=== PATIENT | male | born 1970 | race Caucasian/White ===

== ENCOUNTER 2017-06-19 06:11 | Emergency (ER) | payer SELFPAY ==
[2017-06-19] MEDS ORDERED: Ibuprofen 800 MG TAB ONE (06:42)
== END 2017-06-19 07:45 | disposition home or self-care (01) ==
LOC: MADERS 06:11
DX: H66.92 Otitis media, unspecified, left ear (principal); Z87.891 Personal history of nicotine dependence
CPT/HCPCS: 99282

== ENCOUNTER 2017-07-01 16:07 | Emergency (ER) | payer SELFPAY ==
[2017-07-01] MEDS ORDERED: Lidocaine 1% 20 ML MDV ONE (16:28)
== END 2017-07-01 16:40 | disposition home or self-care (01) ==
LOC: MADERS 16:07
DX: T16.2XXA Foreign body in left ear, initial encounter (principal); Z87.891 Personal history of nicotine dependence
CPT/HCPCS: 69209; J2001

== ENCOUNTER 2017-09-19 13:42 | Emergency (ER) | payer SELFPAY ==
[2017-09-19] MEDS ORDERED: Metoclopramide HCl 10 MG TAB ONE (14:31)
[2017-09-19] MEDS ORDERED: Acetaminophen 500 MG TAB ONE (14:32)
[2017-09-19] MEDS ORDERED: cefTRIAXone\\ROCEPHIN 1 GM VIAL ONE (14:32)
[2017-09-19] MEDS ORDERED: Lidocaine 1% 20 ML MDV ONE (14:32)
[2017-09-19] MEDS ORDERED: diphenhydrAMINE 25 MG CAP ONE (14:46)
== END 2017-09-19 14:50 | disposition home or self-care (01) ==
LOC: MADERS 13:42
DX: H60.92 Unspecified otitis externa, left ear (principal); K02.9 Dental caries, unspecified; Z87.891 Personal history of nicotine dependence
CPT/HCPCS: 96372; J0696; J2001

== ENCOUNTER 2017-10-21 07:42 | Emergency (ER) | payer SELFPAY ==
[2017-10-21 09:01] LABS: #Basophils 0.1 thou/uL (0.0-0.2); #Eosinphils 0.2 thou/uL (0.0-0.7); #Lymphocytes 1.6 thou/uL (1.20-3.40); #Monocytes 0.8 thou/uL (0.11-0.59); #Neutrophils 3.2 thou/uL (1.40-6.50); %Basophils 1.7 % (0.0-1.0); %Eosinophils 3.7 % (0.0-10.0); %Lymphocytes 26.5 % (21.0-51.0); %Monocytes 13.7 % (0.0-10.0); %Neutrophils 54.4 % (42.0-75.0); Hemoglobin 14.2 g/dL (14.0-18.0); Mean Corpuscular HGB CONC 31.8 g/dL (32.0-36.0); Mean Corpuscular Hemoglobin 30.1 pg (27.0-31.0); Mean Corpuscular Volume 94.8 fl (80.0-94.0); Mean Platelet Volume 9.9 fL (7.4-10.4); Platelet Count 203 thou/uL (130-400); RBC Distribution Width 12.4 % (11.5-14.5); Red Blood Cell (RBC) Count 4.73 mill/uL (4.70-6.10); White Blood Cell (WBC) Count 5.9 thou/uL (4.8-10.8)
[2017-10-21 09:30] LABS: ALT (SGPT) 22 U/L (8-55); AST (SGOT) 17 U/L (5-34); Albumin 3.7 g/dL (3.5-5.0); Alkaline Phosphatase 88 U/L (40-150); Anion Gap 16 mmol/L (10-20); BUN (Urea Nitrogen) 17 mg/dL (8.9-20.6); Bilirubin, Total Less than 0.3 mg/dL (0.2-1.2); Calc. Creatinine Clearance 0 mL/min (70-130); Calcium 9.1 mg/dL (7.8-10.44); Carbon Dioxide 20 mmol/L (22-29); Chloride 108 mmol/L (98-107); Estimated GFR-MDRD 72; Globulin 2.8 g/dL (2.4-3.5); Glucose 86 mg/dL (70-105); Lipase 23 U/L (8-78); Potassium 4.9 mmol/L (3.5-5.1); Protein, Total 6.5 g/dL (6.0-8.3); Sodium 139 mmol/L (136-145)
== END 2017-10-21 09:45 | disposition home or self-care (01) ==
LOC: MADERS 07:42
DX: H65.92 Unspecified nonsuppurative otitis media, left ear (principal); R00.1 Bradycardia, unspecified; Z87.891 Personal history of nicotine dependence
CPT/HCPCS: 80053; 83690; 85025; 93005

== ENCOUNTER 2017-10-25 08:53 | Outpatient (CLI) | payer OTHER ==
[2017-10-25 10:16] LABS: Amphetamine Not Detected (NotDetected); Barbiturates Screen Not Detected (NotDetected); Benzodiazepine Screen Not Detected (NotDetected); Cocaine Metabolite Screen Not Detected (NotDetected); Medtox Control Line Valid? VALID (VALID); Methadone Not Detected (NotDetected); Methamphetamine Not Detected (NotDetected); Opiate Screen Not Detected (NotDetected); Oxycodone Screen Not Detected (NotDetected); Phencyclidine (PCP) Not Detected (NotDetected); THC/Cannabinoid Screen Not Detected (NotDetected); Tricyclic Screen Not Detected (NotDetected)
--- NOTE | 2017-10-25 10:56 | CT ---
BRAIN CT WITHOUT IV CONTRAST: Date: 10/25/17 HISTORY: 47-year-old male with syncope and collapse. FINDINGS: No focal mass or midline shift. No intra or extra-axial hemorrhage. Sinuses and mastoids are clear. IMPRESSION: No acute intracranial process. No mass or bleed. POS: [facility]
[2017-10-25 19:45] LABS: Hep C Index 1.91 S/CO (0-0.79)
[2017-10-26 05:17] LABS: Hep C IgG Ab Reflex HepC Qnt (NonReactive)
[2017-10-29 14:19] LABS: Hep B Surface AG-Rflx Sendout Negative (Negative); Hepatitis B Core IgM AB Negative (Negative); Hepatitis B Core Total Negative (Negative); Hepatitis B Surface AB-Sendout Non Reactive (.)
[2017-10-29 15:22] LABS: Hep C PCR-Quant HCV Not Detected IU/mL (.)
== END 2017-10-25 08:54 | disposition home or self-care (01) ==
LOC: MADLAB 08:53
PROVIDERS: ATTEND Family Medicine
DX: Z51.81 Encounter for therapeutic drug level monitoring (principal); B19.20 Unspecified viral hepatitis C without hepatic coma; R42 Dizziness and giddiness; Z87.898 Personal history of other specified conditions; Z79.899 Other long term (current) drug therapy
CPT/HCPCS: 36415; 70450; 80306; 84443; 86704; 86705; 86706; 86707; 86803; 87340; 87350; 87522

== ENCOUNTER 2017-12-05 14:32 | Outpatient (CLI) | payer OTHER ==
--- NOTE | 2017-12-05 15:44 | RAD ---
LEFT HAND THREE VIEW 12/05/17 HISTORY: Pain. History of hand surgery. COMPARISON: None. FINDINGS: There is scaphoidectomy changes. There are dorsal claw pins of the capitolunate and hamate triquetral joints with osseous bridging. No acute fracture or malalignment. IMPRESSION: 1. Postsurgical changes and arthrodesis. 2. Neofacet of the radial styloid and trapezium. 3. Subchondral cyst of the distal radius. POS: [facility]
== END 2017-12-05 14:33 | disposition home or self-care (01) ==
LOC: MADRAD 14:32
PROVIDERS: ATTEND Family Medicine
DX: M79.642 Pain in left hand (principal); M89.8X4 Other specified disorders of bone, hand; M85.40 Solitary bone cyst, unspecified site; Z98.1 Arthrodesis status

== ENCOUNTER 2018-01-21 16:14 | Emergency (ER) | payer OTHER, SELFPAY ==
[2018-01-21] MEDS ORDERED: Tetracaine 0.5% OPHTH SOLN/PF 4 ML BOT ONE (16:22)
[2018-01-21] MEDS ORDERED: Erythromycin Base 0.5% Ophth Oint 3.5 gm Tube ONE (16:30)
== END 2018-01-21 16:50 | disposition home or self-care (01) ==
LOC: MADERS 16:14
DX: H10.9 Unspecified conjunctivitis (principal); Z87.891 Personal history of nicotine dependence
CPT/HCPCS: 99283

== ENCOUNTER 2018-02-10 07:06 | Emergency (ER) | payer SELFPAY ==
[2018-02-10] MEDS ORDERED: cefTRIAXone\\ROCEPHIN 1 GM VIAL ONE (07:45)
[2018-02-10] MEDS ORDERED: Lidocaine 1% 20 ML MDV ONE (07:45)
== END 2018-02-10 08:00 | disposition home or self-care (01) ==
LOC: MADERS 07:06
DX: J20.9 Acute bronchitis, unspecified (principal); H65.91 Unspecified nonsuppurative otitis media, right ear; Z87.891 Personal history of nicotine dependence
CPT/HCPCS: 96372; J0696; J1040; J2001; J7620

== ENCOUNTER 2018-02-18 07:08 | Emergency (ER) | payer SELFPAY ==
[2018-02-18] MEDS ORDERED: Benzonatate 100 MG CAP ONE (07:58)
[2018-02-18] MEDS ORDERED: AMOXicillin 250 MG CAP ONE (07:58)
[2018-02-18 08:02] LABS: #Basophils 0.1 thou/uL (0.0-0.2); #Eosinphils 0.2 thou/uL (0.0-0.7); #Lymphocytes 1.4 thou/uL (1.20-3.40); #Monocytes 0.6 thou/uL (0.11-0.59); #Neutrophils 2.9 thou/uL (1.40-6.50); %Basophils 1.3 % (0.0-1.0); %Eosinophils 3.3 % (0.0-10.0); %Lymphocytes 27.6 % (21.0-51.0); %Monocytes 11.2 % (0.0-10.0); %Neutrophils 56.6 % (42.0-75.0); Hemoglobin 14.7 g/dL (14.0-18.0); Mean Corpuscular HGB CONC 33.7 g/dL (32.0-36.0); Mean Corpuscular Hemoglobin 31.5 pg (27.0-31.0); Mean Corpuscular Volume 93.3 fl (80.0-94.0); Mean Platelet Volume 9.3 fL (7.4-10.4); Platelet Count 257 thou/uL (130-400); RBC Distribution Width 12.3 % (11.5-14.5); Red Blood Cell (RBC) Count 4.68 mill/uL (4.70-6.10)
[2018-02-18] MEDS ORDERED: Diphenoxylate HCl/Atropine Tablet ONE (08:09)
[2018-02-18] MEDS ORDERED: Ondansetron HCl/PF 4 MG/2 ML Vial ONE (08:10)
[2018-02-18 08:15] LABS: PTT 24.2 SEC (22.9-36.1); Prothrombin Time 12.9 SEC (12.0-14.7)
[2018-02-18 08:21] LABS: ALT (SGPT) 30 U/L (8-55); AST (SGOT) 25 U/L (5-34); Albumin 4.2 g/dL (3.5-5.0); Alkaline Phosphatase 104 U/L (40-150); Anion Gap 17 mmol/L (10-20); BUN (Urea Nitrogen) 15 mg/dL (8.9-20.6); Bilirubin, Total 0.7 mg/dL (0.2-1.2); CK (CPK) 428 U/L (30-200); Calc. Creatinine Clearance 0 mL/min (70-130); Calcium 9.5 mg/dL (7.8-10.44); Carbon Dioxide 21 mmol/L (22-29); Chloride 108 mmol/L (98-107); Estimated GFR-MDRD 77; Globulin 3.1 g/dL (2.4-3.5); Glucose 103 mg/dL (70-105); Potassium 4.6 mmol/L (3.5-5.1); Protein, Total 7.3 g/dL (6.0-8.3); Sodium 141 mmol/L (136-145)
--- NOTE | 2018-02-18 08:21 | RAD ---
PORTABLE CHEST: History: Dyspnea. FINDINGS: Lungs are clear of infiltrate. Heart and mediastinum unremarkable. IMPRESSION: No acute abnormality. POS: [facility]
[2018-02-18 08:23] LABS: Troponin I 0.016 ng/mL (< 0.028)
[2018-02-18 08:26] LABS: CKMB 6.9 ng/mL (0-6.6)
== END 2018-02-18 09:25 | disposition home or self-care (01) ==
LOC: MADERS 07:08
DX: J20.9 Acute bronchitis, unspecified (principal); Z87.891 Personal history of nicotine dependence
CPT/HCPCS: 71045; 80053; 82553; 83880; 84484; 85025; 85610; 85730; 93005; 94760; 96372; 96374; J1040; J2405

== ENCOUNTER 2018-05-03 11:32 | Emergency (ER) | payer SELFPAY ==
[2018-05-03] MEDS ORDERED: AMOXicillin 250 MG CAP ONE (12:16)
[2018-05-03] MEDS ORDERED: Oxymetazoline HCl 0.05% ( 15 ML ) ONE (12:16)
== END 2018-05-03 12:28 | disposition home or self-care (01) ==
LOC: MADERS 11:32
DX: J01.90 Acute sinusitis, unspecified (principal); Z87.891 Personal history of nicotine dependence
CPT/HCPCS: 99283